=== PATIENT | male | born 1990 | race African-American/Black ===

== ENCOUNTER 2019-03-27 11:25 | Emergency (ER) | payer SELFPAY ==
[~2019-03-27] VITALS: Ht 188 cm; Wt 73.0 kg
[2019-03-27 12:18] VITALS: BP 123/82
== END 2019-03-27 15:02 | disposition left against medical advice (07) ==
LOC: ER 11:35
DX: S61.242A Puncture wound with foreign body of right middle finger without damage to nail, initial encounter (principal); M79.645 Pain in left finger(s); J45.909 Unspecified asthma, uncomplicated; X58.XXXA Exposure to other specified factors, initial encounter; Y93.9 Activity, unspecified; Y92.9 Unspecified place or not applicable; F17.200 Nicotine dependence, unspecified, uncomplicated
CPT/HCPCS: 99281

== ENCOUNTER 2019-08-06 03:50 | Emergency (ER) | payer SELFPAY ==
[~2019-08-06] VITALS: Ht 185.4 cm; Wt 77.0 kg
[2019-08-06 04:28] VITALS: BP 125/86
[2019-08-06] MEDS ORDERED: ACETAMINOPHEN 325MG TABLET PO ONE (05:00)
== END 2019-08-06 05:01 | disposition left against medical advice (07) ==
LOC: ER 03:50
DX: R51 Headache (principal); J45.909 Unspecified asthma, uncomplicated; Z59.0 Homelessness
CPT/HCPCS: 99281; 99282; 99406